=== PATIENT | male | born 1990 ===

== ENCOUNTER 2019-06-23 16:24 | Inpatient (IN) | payer MEDICAID, OTHER ==
[2019-06-23] MEDS ORDERED: MAG HYDROX/AL HYDROX/SIMETH 30 ML CUP PO PRN (17:11)
[2019-06-23] MEDS ORDERED: MAGNESIUM HYDROXIDE 2,400 MG/10 ML CUP PO PRN (17:11)
[2019-06-23] MEDS ORDERED: ZIPRASIDONE 20 MG VIAL IM PRN (17:11)
[2019-06-23] MEDS ORDERED: ACETAMINOPHEN TAB 325 MG TAB PO PRN (17:11)
[2019-06-23] MEDS: levETIRAcetam 500 MG TAB PO SCH (20:53)
--- NOTE | 2019-06-24 00:35 | P.MDCNMH ---
History of Present Illness H&P Date: 06/23/19 Chief Complaint: medical evaluation 29 year old male with depression , anxiety , PTSD patient comes in due to suicidal ideation, he does not take any medications at home, he reports feeling hopeless, and was having suicidal thoughts without specific plan . he otherwise denies any medical complaints., he denies nay chest pain , SOB, fever, chills, nausea , vomtiing, URI symptoms , denies any abd pain , changes in urinary or bowel habits. patient admits to smoking cigarettes and weed, denies any other drugs , and reports rarely drinking Review of Systems Pertinent positives as noted in HPI. All other systems were reviewed and are ne gative Past Medical History Past Medical History: Seizure Disorder History of Any Multi-Drug Resistant Organisms: None Reported Past Anesthesia/Blood Transfusion Reactions: No Reported Reaction Past Psychological History: Anxiety, Bipolar, Depression Smoking Status: Current every day smoker Past Alcohol Use History: None Reported Past Drug Use History: Heroin, Methamphetamine - Past Family History family Family Medical History: No Reported History Medications and Allergies Allergies Allergy/AdvReac Type Severity Reaction Status Date / Time escitalopram [From Lexapro] AdvReac Unknown Verified 06/23/19 17:10 Physical Exam Vitals: Vital Signs Temp Pulse Resp BP 06/23/19 18:34 98.0 F 72 16 125/86 Intake and Output 06/23/19 06/23/19 06/24/19 14:59 22:59 06:59 Other: Weight 97.692 kg Constitutional: No acute distress, conversant, pleasant Eyes: Anicteric sclerae, moist conjunctiva, no lid-lag Pupils equal round reactive to light ENMT: NC/AT Oropharynx clear, no erythema, or exudates Neck: Supple, FROM, no masses, or JVD No carotid bruits No thyromegaly Lungs: Clear to auscultation Clear to percussion Normal respiratory effort, no accessory muscle use Cardiovascular: Heart regular in rate and rhythm, No murmurs, gallops, or rubs No peripheral edema Abdominal: Soft Nontender, no guarding, rebound or rigidity Abdomen moving with respiration Normoactive bowel sounds No hepatomegaly, No splenomegaly No palpable mass No abdominal wall hernia noted Skin: Normal temperature, tone, texture, turgor No induration No subcutaneous nodules No rash, lesions No ulcers Extremities: No digital cyanosis No clubbing Pedal pulses intact and symmetrical Radial pulses intact and symmetrical No calf tenderness Psychiatric: Alert and oriented to person, place and time Appropriate affect poor judgement Neuro Muscles Strength 5/5 in all 4 extremities Sensation to light touch grossly present throughout Cranial nerves II-XII grossly intact No focal sensory deficits Lymphatics: no palpable cervical or supraclavicular , or inguinal lymph nodes Cranial Nerve Examination - Cranial Nerves Cranial Nerve II- Optic: Intact Cranial Nerve III- Oculomotor: Intact Cranial Nerve IV- Trochlear: Intact Cranial Nerve V- Trigeminal: Intact Cranial Nerve - Abducens: Intact Cranial Nerve VII- Facial: Intact Cranial Nerve VIII- Auditory: Intact Cranial Nerve IX- Glossopharyngeal: Intact Cranial Nerve X- Vagus: Intact Cranial Nerve XI- Accessory: Intact Cranial Nerve XII- Hypoglossal: Intact Assessment and Plan Assessment: 29-year-old male with depression and anxiety and PTSD medicine consulted for medical management patient currently has no medical complaints patient admitted for suicidal ideation medicine consulted for medical management Suicidal ideation Anxiety and depression PTSD Management per psych Tobacco smoking Patient counseled to quit smoking replacement therapy offered DVT prophylaxis patient is low risk and ambulatory Follow-up labs Thank you for allowing us to participate in the care of this patient. We will follow peripherally. Do not hesitate to contact us with questions. Someone can be reached from the [facility] hospitalist group at all hours of the day at [phone].
[2019-06-24 08:20] LABS: Basophils # (A) 0.1 k/uL (0-0.2); Basophils % (A) 1 %; Eosinophils # (A) 0.2 k/uL (0-0.7); Eosinophils % (A) 3 %; HCT 44.1 % (39.0-53.0); HGB 14.2 gm/dL (13.0-17.5); Lymphocytes % (A) 38 %; MCH 28.9 pg (25.0-35.0); MCHC 32.2 g/dL (31.0-37.0); MCV 89.8 fL (80.0-100.0); Mean Platelet Volume 7.4; Monocytes # (A) 0.6 k/uL (0-1.0); Monocytes % (A) 7 %; Neutrophils # (A) 3.8 k/uL (1.3-7.7); Neutrophils % (A) 49 %; Platelet Count 199 k/uL (150-450); RBC 4.92 m/uL (4.30-5.90); RDW 13.5 % (11.5-15.5); WBC 7.9 k/uL (3.8-10.6)
[2019-06-24 08:31] LABS: ALT 19 U/L (4-49); AST 23 U/L (17-59); African American GFR (CKD) >90 (>60 ml/min/1.73 sqM); Albumin 4.4 g/dL (3.5-5.0); Alkaline Phosphatase 40 U/L (38-126); Anion Gap 6 mmol/L; Blood Urea Nitrogen 12 mg/dL (9-20); Calcium 9.4 mg/dL (8.4-10.2); Carbon Dioxide 26 mmol/L (22-30); Chloride 106 mmol/L (98-107); Cholesterol 212 mg/dL (<200); Glucose 90 mg/dL (74-99); HDL Cholesterol 31 mg/dL (40-60); LDL Cholesterol,Calculated 153 mg/dL (0-99); Non-African American GFR(CKD) >90 (>60 ml/min/1.73 sqM); Potassium 4.5 mmol/L (3.5-5.1); Sodium 138 mmol/L (137-145); Total Bilirubin 0.4 mg/dL (0.2-1.3); Triglycerides 141 mg/dL (<150)
[2019-06-24] MEDS: NICOTINE 21MG/24HR PATCH TRANSDERM SCH (08:45)
[2019-06-24] MEDS: levETIRAcetam 500 MG TAB PO SCH ×2 (08:45→21:19)
[2019-06-24] MEDS ORDERED: DESVENLAFAXINE SUCCINATE 50 MG TAB.ER.24H PO SCH (15:00)
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
[2019-06-24] MEDS: DESVENLAFAXINE SUCCINATE 50 MG TAB.ER.24H PO SCH (15:08)
[2019-06-24] MEDS: ARIPiprazole 2 MG TAB PO SCH (15:08)
[2019-06-24 19:27] LABS: Hemoglobin A1C 5.6 % (4.0-6.0)
[2019-06-25] MEDS: DESVENLAFAXINE SUCCINATE 50 MG TAB.ER.24H PO SCH (09:09)
[2019-06-25] MEDS: levETIRAcetam 500 MG TAB PO SCH ×2 (09:09→21:41)
[2019-06-25] MEDS: ARIPiprazole 2 MG TAB PO SCH (09:09)
[2019-06-25] MEDS: NICOTINE 21MG/24HR PATCH TRANSDERM SCH (09:09)
--- NOTE | 2019-06-25 12:53 | P.PN ---
Progress Note - Text Progress Note Date: 06/25/19 Interval history: Patient seen again today in cross coverage. Says he slept approximately 4 hours last night. He relates today that he does admit appointment with [facility] on June 28. Relays he didn't intake over the phone. He states initially when he took the medication yesterday he felt a little lightheaded but did not feel this today. Mental status exam: He is alert and cooperative with the interview. His speech is fluent not rapid or pressured. His thought processes organized. His mood overall is improved. He denies any thoughts of harm to self or others. No active evidence of psychosis. He does not display any agitation. Plan: Patient will be maintained on current psychotropic medication regimen. Continue to monitor for any medication side effects and monitor his ongoing response to treatment. We'll continue to monitor regarding any suicidal ideations.
[2019-06-26] MEDS: LORazepam 1 MG TAB PO PRN ×2 (00:56→20:56)
[2019-06-26] MEDS: NICOTINE 21MG/24HR PATCH TRANSDERM SCH (09:41)
[2019-06-26] MEDS: levETIRAcetam 500 MG TAB PO SCH ×2 (09:42→20:55)
[2019-06-26] MEDS: ARIPiprazole 2 MG TAB PO SCH (09:42)
[2019-06-26] MEDS: DESVENLAFAXINE SUCCINATE 50 MG TAB.ER.24H PO SCH (09:43)
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
[2019-06-27 06:43] VITALS: BP 139/98; PULSE 100; RESP 17
[2019-06-27] MEDS: levETIRAcetam 500 MG TAB PO SCH (09:00)
[2019-06-27] MEDS: NICOTINE 21MG/24HR PATCH TRANSDERM SCH (09:00)
[2019-06-27] MEDS: ARIPiprazole 2 MG TAB PO SCH (09:00)
[2019-06-27] MEDS: DESVENLAFAXINE SUCCINATE 50 MG TAB.ER.24H PO SCH (09:00)
[2019-06-27] MEDS ORDERED: diphenhydrAMINE 25 MG CAP PO PRN (10:10)
[2019-06-27 13:21] VITALS: TEMP 98.7
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
== END 2019-06-27 14:45 | disposition home or self-care (01) | DRG 885 ==
LOC: 3MHU 16:24
PROVIDERS: ADMIT Psychiatry & Neurology Psychiatry; ATTEND Psychiatry & Neurology Psychiatry
DX: F33.2 Major depressive disorder, recurrent severe without psychotic features (principal); R45.851 Suicidal ideations; E66.9 Obesity, unspecified; F11.21 Opioid dependence, in remission; F15.21 Other stimulant dependence, in remission; F41.1 Generalized anxiety disorder; F43.10 Post-traumatic stress disorder, unspecified; F64.9 Gender identity disorder, unspecified; G40.909 Epilepsy, unspecified, not intractable, without status epilepticus; F64.0 Transsexualism; Z72.0 Tobacco use; Z79.899 Other long term (current) drug therapy; Z91.410 Personal history of adult physical and sexual abuse
CPT/HCPCS: 80053; 80061; 83036; 84443; 85025